=== PATIENT | male | born 1975 | race Caucasian/White ===

== ENCOUNTER 2017-07-06 11:39 | Inpatient (IN) ==
[2017-07-06] MEDS ORDERED: Oxycodone *IR* 5 MG TABLET PO PRN ×2 (13:20→13:45)
[2017-07-06] MEDS ORDERED: BACITRACIN OINT 15 GM TOP PRN (13:45)
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
[2017-07-06] MEDS: ALBUTEROL/IPRATROPIUM 2.5mg-0.5mg/3ml NEB AEROSOL SCH ×2 (16:26→20:23)
[2017-07-06] MEDS: ALBUTEROL 2.5mg/3ml (0.083%) NEB AEROSOL SCH (16:26)
[2017-07-06] MEDS: ALPRAZolam 0.5 MG TABLET PO SCH ×2 (16:36→21:04)
[2017-07-06] MEDS: ACETAMINOPHEN 500 MG TABLET PO SCH ×2 (16:36→21:09)
[2017-07-06] MEDS: CYCLOBENZAPRINE 10 MG TABLET PO SCH ×2 (16:36→21:07)
[2017-07-06] MEDS: APIXABAN 5 MG TABLET PO SCH ×3 (16:37→21:07)
[2017-07-06] MEDS ORDERED: FALL RISK - PHARMACY CONSULT MC PRN (18:44)
[2017-07-06] MEDS ORDERED: Oxycodone *IR* 15 MG TABLET PO PRN (19:37)
[2017-07-06] MEDS: Oxycodone *IR* 15 MG TABLET PO PRN (19:46)
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
[2017-07-06] MEDS ORDERED: DOCUSATE SODIUM 100 MG CAPSULE PO SCH (21:00)
[2017-07-06] MEDS ORDERED: OXYCODONE 40 MG PO SCH ×2 (21:00)
[2017-07-06] MEDS: PREGABALIN 75 MG CAPSULE PO SCH (21:05)
[2017-07-06] MEDS: OXYCODONE PO SCH (21:05)
[2017-07-06] MEDS: SENNOSIDES 8.6 MG TABLET PO SCH (21:06)
[2017-07-06] MEDS: MIRTAZAPINE 15 MG TABLET PO SCH ×2 (21:08→21:10)
[2017-07-06] MEDS: LIDOCAINE PATCH REMOVAL TOP SCH (21:09)
[2017-07-06] MEDS: POLYETHYL GLYCOL 3350 17gm PACKET PO SCH (21:10)
[2017-07-07] MEDS: Oxycodone *IR* 15 MG TABLET PO PRN ×7 (01:25→21:17)
[2017-07-07] MEDS: ALBUTEROL 2.5mg/3ml (0.083%) NEB AEROSOL SCH ×3 (03:12→21:10)
[2017-07-07] MEDS: ACETAMINOPHEN 500 MG TABLET PO SCH ×4 (04:31→21:20)
[2017-07-07] MEDS: OMEPRAZOLE 20 MG CAPSULE PO SCH ×2 (04:31→06:29)
--- NOTE | 2017-07-07 07:31 | IRU 24Hr Post Admit Eval ---
24 Hr Post Admission Physical - Relevant Changes Relevant Changes: No Reviewed: I have reviewed the patient's information and concur with the finding and results of the pre-admission screen. Certification: I certify the patient for rehabilitation. - Prior Functional Status Lives With: Spouse Residence Type: Apartment/Private Home Assitive Devices: Wheelchair Prior Functional Status: Indep. at home or school - Current Functional Status Failed Alternative Therapy: Arrived from Acute Care Patient Requirements: The patient requires oversight by rehabilitation physician to manage their rehabilitation treatment plan and multidisciplinary approach to care that can only be provided in an IRF and requires a multidisciplinary approach to care, provided by professional PTs, OTs, STs, dieticians, RTs, rehabilitation nurses and is not available in lesser levels of care. Limitiations Req: Mobility Impairment Physical Therapy Minutes: 90 Occupational Therapy Minutes: 90 Therapy: The patient is to receive therapy at least 5 days a week. ROM Deficit: Right Lower Extremity, Left Lower Extremity ROM Comment: severe fracture of pelvis requiring surgical stabilization - Complications/Comorbidities Impact on Functional Outcomes: pain, infection, delayed fracture healing Barriers to Discharge: Weakness, Balance, Endurance, Pain Control - Plan to Avoid Complications Plan to Avoid Complications: The patient cannot receive this care in a lesser intensive setting such as Longterm or Outpatient Therapy due to the patient requiring the following .
[2017-07-07] MEDS: ALPRAZolam 0.5 MG TABLET PO SCH ×3 (08:20→21:18)
[2017-07-07] MEDS: OXYCODONE PO SCH (08:20)
[2017-07-07] MEDS: CYCLOBENZAPRINE 10 MG TABLET PO SCH ×4 (08:20→21:22)
[2017-07-07] MEDS: SENNOSIDES 8.6 MG TABLET PO SCH ×2 (08:21→21:22)
[2017-07-07] MEDS: PREGABALIN 75 MG CAPSULE PO SCH ×2 (08:21→21:22)
[2017-07-07] MEDS: APIXABAN 5 MG TABLET PO SCH ×2 (08:21→21:21)
[2017-07-07] MEDS: POLYETHYL GLYCOL 3350 17gm PACKET PO SCH ×2 (08:22→21:23)
[2017-07-07] MEDS: MAGNESIUM OXIDE 400 MG TABLET PO SCH (08:22)
[2017-07-07] MEDS: DOXAZOSIN 4 MG TABLET PO SCH (08:22)
--- NOTE | 2017-07-07 08:26 | IRU Progress Note ---
- Subjective/Serverity of Illness Mobilizing fairly well. Has marked pain really any movement. Overall attitude is good, however. Exam Vital Signs: Temperature 98.3 F 07/07/17 08:00 Pulse Rate 87 07/07/17 08:00 Respiratory Rate 20 07/07/17 08:00 Blood Pressure 139/80 07/07/17 08:00 Pulse Oximetry 96 07/07/17 08:00 Oxygen Delivery Method Room Air Height/Weight/BMI: Height 1.78 m - Constitutional Present: moderate distress Sepsis Assessment - Evaluation Sepsis screening result: No Definite Risk IRU A/P DVT Prophylaxis: Eliquis Resuscitation Status: Full Code - Course Hospital Course: Alhaji Castro MD: - Interventions to Obtain Goals OT Treatment Plan: ADL (Basic Care), Balance Training, IADL, Pt./Family Education, Ther. Exercise for ADL
[2017-07-07] MEDS: LIDOCAINE 5% PATCH TOP SCH (08:47)
[2017-07-07] MEDS: ALBUTEROL/IPRATROPIUM 2.5mg-0.5mg/3ml NEB AEROSOL SCH ×3 (09:44→21:10)
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
[2017-07-07] MEDS: OXYCODONE 40 MG PO SCH (21:18)
[2017-07-07] MEDS: LIDOCAINE PATCH REMOVAL TOP SCH (21:22)
[2017-07-07] MEDS: MIRTAZAPINE 15 MG TABLET PO SCH (21:23)
[2017-07-08] MEDS: Oxycodone *IR* 15 MG TABLET PO PRN ×7 (01:17→21:09)
[2017-07-08] MEDS: ACETAMINOPHEN 500 MG TABLET PO SCH ×5 (01:18→21:11)
[2017-07-08] MEDS: OMEPRAZOLE 20 MG CAPSULE PO SCH ×2 (05:27→06:45)
[2017-07-08] MEDS: ALBUTEROL/IPRATROPIUM 2.5mg-0.5mg/3ml NEB AEROSOL SCH ×3 (07:21→22:48)
[2017-07-08] MEDS: PREGABALIN 75 MG CAPSULE PO SCH ×2 (08:53→21:09)
[2017-07-08] MEDS: DOXAZOSIN 4 MG TABLET PO SCH (08:54)
[2017-07-08] MEDS: POLYETHYL GLYCOL 3350 17gm PACKET PO SCH ×2 (08:54→21:09)
[2017-07-08] MEDS: SENNOSIDES 8.6 MG TABLET PO SCH ×2 (08:54→21:09)
[2017-07-08] MEDS: APIXABAN 5 MG TABLET PO SCH ×2 (08:54→21:10)
[2017-07-08] MEDS: CYCLOBENZAPRINE 10 MG TABLET PO SCH ×3 (08:54→21:10)
[2017-07-08] MEDS: MAGNESIUM OXIDE 400 MG TABLET PO SCH ×2 (08:55→09:07)
[2017-07-08] MEDS: ALPRAZolam 0.5 MG TABLET PO SCH ×3 (08:55→21:11)
[2017-07-08] MEDS: OXYCODONE 40 MG PO SCH ×2 (08:55→21:10)
[2017-07-08] MEDS: LIDOCAINE 5% PATCH TOP SCH (08:56)
[2017-07-08] MEDS ORDERED: CABERGOLINE 0.5 MG TABLET PO SCH (09:00)
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
[2017-07-08] MEDS: ONDANSETRON ODT 4 MG TABLET PO PRN (12:05)
[2017-07-08] MEDS: ALBUTEROL 2.5mg/3ml (0.083%) NEB AEROSOL SCH ×2 (15:41→22:48)
[2017-07-08] MEDS: LIDOCAINE PATCH REMOVAL TOP SCH (20:59)
[2017-07-08] MEDS: MIRTAZAPINE 15 MG TABLET PO SCH (21:10)
[2017-07-09] MEDS: Oxycodone *IR* 15 MG TABLET PO PRN ×7 (02:54→21:13)
[2017-07-09] MEDS: ACETAMINOPHEN 500 MG TABLET PO SCH ×5 (04:04→21:16)
[2017-07-09] MEDS: OMEPRAZOLE 20 MG CAPSULE PO SCH (06:04)
[2017-07-09] MEDS: ALBUTEROL/IPRATROPIUM 2.5mg-0.5mg/3ml NEB AEROSOL SCH ×3 (07:42→22:46)
[2017-07-09] MEDS: ALBUTEROL 2.5mg/3ml (0.083%) NEB AEROSOL SCH ×4 (07:45→20:45)
[2017-07-09] MEDS: ALPRAZolam 0.5 MG TABLET PO SCH ×3 (09:20→21:16)
[2017-07-09] MEDS: OXYCODONE 40 MG PO SCH ×2 (09:20→21:13)
[2017-07-09] MEDS: DOXAZOSIN 4 MG TABLET PO SCH (09:21)
[2017-07-09] MEDS: APIXABAN 5 MG TABLET PO SCH ×2 (09:21→21:15)
[2017-07-09] MEDS: POLYETHYL GLYCOL 3350 17gm PACKET PO SCH ×3 (09:21→22:46)
[2017-07-09] MEDS: PREGABALIN 75 MG CAPSULE PO SCH ×2 (09:21→21:17)
[2017-07-09] MEDS: SENNOSIDES 8.6 MG TABLET PO SCH ×3 (09:21→22:46)
[2017-07-09] MEDS: CYCLOBENZAPRINE 10 MG TABLET PO SCH ×3 (09:21→21:13)
[2017-07-09] MEDS: LIDOCAINE 5% PATCH TOP SCH (09:26)
[2017-07-09] MEDS: MAGNESIUM OXIDE 400 MG TABLET PO SCH (14:26)
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
[2017-07-09] MEDS: LIDOCAINE PATCH REMOVAL TOP SCH (20:04)
[2017-07-09] MEDS: MIRTAZAPINE 15 MG TABLET PO SCH (21:18)
[2017-07-10] MEDS: Oxycodone *IR* 15 MG TABLET PO PRN ×7 (04:22→22:38)
[2017-07-10] MEDS: ACETAMINOPHEN 500 MG TABLET PO SCH ×4 (04:26→21:25)
[2017-07-10] MEDS: OMEPRAZOLE 20 MG CAPSULE PO SCH ×2 (05:05→06:19)
[2017-07-10] MEDS: ALBUTEROL/IPRATROPIUM 2.5mg-0.5mg/3ml NEB AEROSOL SCH ×2 (07:12→15:30)
[2017-07-10] MEDS: LIDOCAINE 5% PATCH TOP SCH (08:40)
[2017-07-10] MEDS: APIXABAN 5 MG TABLET PO SCH ×2 (08:42→21:20)
[2017-07-10] MEDS: OXYCODONE 40 MG PO SCH ×2 (08:42→21:19)
[2017-07-10] MEDS: SENNOSIDES 8.6 MG TABLET PO SCH ×2 (08:43→21:20)
[2017-07-10] MEDS: ALPRAZolam 0.5 MG TABLET PO SCH ×3 (08:43→21:22)
[2017-07-10] MEDS: PREGABALIN 75 MG CAPSULE PO SCH ×2 (08:43→21:19)
[2017-07-10] MEDS: POLYETHYL GLYCOL 3350 17gm PACKET PO SCH ×2 (08:44→21:18)
[2017-07-10] MEDS: CYCLOBENZAPRINE 10 MG TABLET PO SCH ×3 (08:44→21:20)
[2017-07-10] MEDS: DOXAZOSIN 4 MG TABLET PO SCH (08:44)
[2017-07-10] MEDS ORDERED: TESTOSTERONE CYPIONATE 200 MG/ML IM SCH (09:00)
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
[2017-07-10] MEDS ORDERED: ALBUTEROL 2.5mg/3ml (0.083%) NEB AEROSOL PRN (15:54)
[2017-07-10] MEDS ORDERED: ALBUTEROL/IPRATROPIUM 2.5mg-0.5mg/3ml NEB AEROSOL PRN (15:54)
[2017-07-10] MEDS: MIRTAZAPINE 15 MG TABLET PO SCH (21:21)
[2017-07-10] MEDS: LIDOCAINE PATCH REMOVAL TOP SCH (21:22)
[2017-07-11] MEDS: ACETAMINOPHEN 500 MG TABLET PO SCH ×4 (03:15→21:02)
[2017-07-11] MEDS: Oxycodone *IR* 15 MG TABLET PO PRN ×3 (03:15→09:14)
[2017-07-11] MEDS: OMEPRAZOLE 20 MG CAPSULE PO SCH (05:57)
[2017-07-11] MEDS: PREGABALIN 75 MG CAPSULE PO SCH ×2 (09:13→21:02)
[2017-07-11] MEDS: OXYCODONE 40 MG PO SCH ×2 (09:13→21:03)
[2017-07-11] MEDS: ALPRAZolam 0.5 MG TABLET PO SCH ×3 (09:14→21:02)
[2017-07-11] MEDS: APIXABAN 5 MG TABLET PO SCH ×2 (09:15→21:03)
[2017-07-11] MEDS: DOXAZOSIN 4 MG TABLET PO SCH (09:15)
[2017-07-11] MEDS: SENNOSIDES 8.6 MG TABLET PO SCH ×2 (09:15→21:03)
[2017-07-11] MEDS: CYCLOBENZAPRINE 10 MG TABLET PO SCH ×3 (09:15→21:03)
[2017-07-11] MEDS: POLYETHYL GLYCOL 3350 17gm PACKET PO SCH ×2 (09:15→21:02)
[2017-07-11] MEDS: LIDOCAINE 5% PATCH TOP SCH (09:16)
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
[2017-07-11] MEDS: ONDANSETRON ODT 4 MG TABLET PO PRN ×3 (11:28→16:18)
[2017-07-11] MEDS: Oxycodone *IR* 15 MG TABLET PO SCH ×4 (11:34→23:55)
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
[2017-07-11] MEDS ORDERED: METOCLOPRAMIDE 10mg/2ml INJECTION IVP PRN (17:18)
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
[2017-07-11] MEDS: MIRTAZAPINE 15 MG TABLET PO SCH (21:04)
[2017-07-11] MEDS: LIDOCAINE PATCH REMOVAL TOP SCH (21:10)
[2017-07-12] MEDS: Oxycodone *IR* 15 MG TABLET PO SCH ×9 (01:47→21:39)
[2017-07-12] MEDS: ACETAMINOPHEN 500 MG TABLET PO SCH ×4 (04:18→21:42)
[2017-07-12] MEDS: OMEPRAZOLE 20 MG CAPSULE PO SCH (07:03)
[2017-07-12] MEDS: DOXAZOSIN 4 MG TABLET PO SCH (08:38)
[2017-07-12] MEDS: POLYETHYL GLYCOL 3350 17gm PACKET PO SCH ×2 (08:38→21:39)
[2017-07-12] MEDS: PREGABALIN 75 MG CAPSULE PO SCH ×2 (08:38→21:40)
[2017-07-12] MEDS: OXYCODONE 40 MG PO SCH ×2 (08:39→21:40)
[2017-07-12] MEDS: APIXABAN 5 MG TABLET PO SCH ×2 (08:39→21:40)
[2017-07-12] MEDS: SENNOSIDES 8.6 MG TABLET PO SCH ×2 (08:39→21:43)
[2017-07-12] MEDS: CYCLOBENZAPRINE 10 MG TABLET PO SCH ×3 (08:40→21:42)
[2017-07-12] MEDS: LIDOCAINE 5% PATCH TOP SCH (08:40)
[2017-07-12] MEDS: ALPRAZolam 0.5 MG TABLET PO SCH ×3 (08:40→20:15)
[2017-07-12] MEDS: ONDANSETRON ODT 4 MG TABLET PO PRN ×2 (10:03→19:59)
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
[2017-07-12] MEDS: MIRTAZAPINE 15 MG TABLET PO SCH (21:42)
[2017-07-13] MEDS: LIDOCAINE PATCH REMOVAL TOP SCH ×2 (00:11→21:09)
[2017-07-13] MEDS: Oxycodone *IR* 15 MG TABLET PO SCH ×8 (01:07→21:59)
[2017-07-13] MEDS: ACETAMINOPHEN 500 MG TABLET PO SCH ×4 (03:59→21:08)
[2017-07-13] MEDS: OMEPRAZOLE 20 MG CAPSULE PO SCH (07:02)
[2017-07-13] MEDS: APIXABAN 5 MG TABLET PO SCH ×2 (08:52→21:09)
[2017-07-13] MEDS: PREGABALIN 75 MG CAPSULE PO SCH ×2 (08:52→21:09)
[2017-07-13] MEDS: POLYETHYL GLYCOL 3350 17gm PACKET PO SCH ×2 (08:53→21:07)
[2017-07-13] MEDS: DOXAZOSIN 4 MG TABLET PO SCH (08:53)
[2017-07-13] MEDS: ALPRAZolam 0.5 MG TABLET PO SCH ×3 (08:53→21:08)
[2017-07-13] MEDS: CYCLOBENZAPRINE 10 MG TABLET PO SCH ×3 (08:53→21:08)
[2017-07-13] MEDS: OXYCODONE 40 MG PO SCH ×2 (08:53→21:08)
[2017-07-13] MEDS: SENNOSIDES 8.6 MG TABLET PO SCH ×2 (08:54→21:07)
[2017-07-13] MEDS: LIDOCAINE 5% PATCH TOP SCH (08:54)
[2017-07-13] MEDS: ONDANSETRON ODT 4 MG TABLET PO PRN (12:24)
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
[2017-07-13] MEDS: MIRTAZAPINE 15 MG TABLET PO SCH (21:07)
[2017-07-14] MEDS: Oxycodone *IR* 15 MG TABLET PO SCH ×5 (01:04→13:00)
[2017-07-14 03:13] VITALS: O2SAT 96
[2017-07-14] MEDS: ACETAMINOPHEN 500 MG TABLET PO SCH ×2 (04:01→08:49)
[2017-07-14] MEDS: OMEPRAZOLE 20 MG CAPSULE PO SCH (07:12)
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
[2017-07-14] MEDS: CYCLOBENZAPRINE 10 MG TABLET PO SCH (08:49)
[2017-07-14] MEDS: OXYCODONE 40 MG PO SCH (08:50)
[2017-07-14] MEDS: APIXABAN 5 MG TABLET PO SCH (08:50)
[2017-07-14] MEDS: ALPRAZolam 0.5 MG TABLET PO SCH (08:51)
[2017-07-14] MEDS: SENNOSIDES 8.6 MG TABLET PO SCH (08:51)
[2017-07-14] MEDS: DOXAZOSIN 4 MG TABLET PO SCH (08:51)
[2017-07-14] MEDS: PREGABALIN 75 MG CAPSULE PO SCH (08:51)
[2017-07-14] MEDS: LIDOCAINE 5% PATCH TOP SCH (08:52)
[2017-07-14] MEDS: POLYETHYL GLYCOL 3350 17gm PACKET PO SCH (08:53)
[2017-07-14] MEDS: ONDANSETRON ODT 4 MG TABLET PO PRN (09:57)
[2017-07-14 10:18] VITALS: BP 135/70; PULSE 89; RESP 20; TEMP 98.1
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
== END 2017-07-14 13:55 | disposition home health service (06) | DRG 560 ==
PROVIDERS: ADMIT Orthopaedic Surgery; ATTEND Orthopaedic Surgery

== ENCOUNTER 2018-03-13 00:06 | Inpatient (IN) ==
[2018-03-13] MEDS ORDERED: NS 1,000 ML IV ONE (00:19)
--- NOTE | 2018-03-13 00:19 | Emergency Department Report ---
Abdominal Pain HPI - General Chief Complaint: Abdominal Pain Stated Complaint: Abd pain Time Seen by Provider: 03/13/18 00:18 Source: patient, family, EMS Mode of arrival: EMS Limitations: no limitations - History of Present Illness HPI narrative: 42-year-old male presents to the emergency department with a chief complaint of abdominal pain. Patient noted onset of symptoms earlier today and symptoms of increased throughout the day. He describes his pain as severe. Pain is sharp. Pain is generalized throughout the abdomen without radiation. He notes nausea with scattered episodes of emesis. Emesis is nonbloody and nonbilious. He denies any trauma, travel, poorly prepared food, or recent antibiotic use. He has been trying [id number] bowel regimen in order to produce a bowel movement. He has no other complaints or associated symptoms at this time. He was at home when his symptoms began. Symptoms have been persistent in nature since onset. - Related Data Home Medications Medication Instructions Recorded Confirmed Cabergoline [Dostinex] 0.5 mg PO 1 WEEK #0 12/10/11 03/13/18 Cyclobenzaprine [Flexeril] 1 tab PO TID 07/06/17 03/13/18 Doxazosin [Cardura] 1 tab PO DAILY 07/06/17 03/13/18 Magnesium Hydroxide [Milk of 2,400 mg PO DAILY 07/06/17 03/13/18 Magnesia] Omeprazole 1 tab PO ACB 07/06/17 03/13/18 Polyethylene Glycol 3350 [Miralax] 17 gm PO DAILY 07/06/17 03/13/18 Testosterone 200 mg/ml (1 ml) 1 ml IM WEEKLY 07/06/17 03/13/18 [Depo-Testosterone] ALPRAZolam [Xanax] 1 - 2 tab PO Q8H PRN 12/11/17 03/13/18 Oxycodone CR [Oxycontin] 40 mg PO Q6H 03/13/18 03/13/18 Oxycodone HCl [Oxycontin] 80 mg PO BID 03/13/18 03/13/18 Previous Rx's Medication Instructions Recorded Ondansetron Odt [Zofran Odt Tablet] 4 mg PO QID PRN #20 tab 07/14/17 Pregabalin Cap [Lyrica] 2 cap PO BID #56 cap 07/14/17 Allergies Allergy/AdvReac Type Severity Reaction Status Date / Time Penicillins Allergy Unknown Verified 03/13/18 03:38 Review of Systems Constitutional: Denies: fever, chills Eyes: Denies: eye pain, vision change ENT: Denies: ear pain, throat pain Cardiovascular: Denies: chest pain, palpitations Respiratory: Denies: cough, dyspnea Gastrointestinal: Reports: abdominal pain, nausea, vomiting. Denies: diarrhea Genitourinary: Denies: urgency, dysuria Musculoskeletal: Denies: back pain, arthralgia Integumentary: Denies: erythema, rash Neurological: Denies: headache, numbness Psychiatric: Denies: anxiety, depression Endocrine: Denies: fatigue, heat or cold intolerance Hematological/Lymphatic: Denies: easy bruising, lymphadenopathy Allergic/Immunologic: Denies: facial swelling, urticaria PFSH Patient Stated Medical History Peripheral Neuropathy Yes Hypertension Yes Other Cardiology Yes: pt. reports mitral valve prolapse Constipation Yes Hx Incontinence No Hx Kidney Stones Yes Other Yes: tonsils/adenoids removed Surgical History: I&D with IM nail for right open tibia fracture 06/27/[address] Encinas. Percutaneous reduction and screw fixation of right SI and right anterior column on 06/30/[address] Encinas. cholecystectomy. T&A Family History: Reviewed and noncontributory. - Social History Smoking status: Never smoker Substance use type: does not use Alcohol intake frequency: does not drink Current residence: Apartment/Private Home Physical Exam - Limitations Limitations: no limitations - General General appearance: alert, in distress (Mild distress secondary to pain. ) - Normal Exams: Head:: Normocephalic without trauma Eyes:: Pupils are PERRLA w/ EOMI, No scleral icterus, irritation, or foreign bodies noted ENMT:: No facial trauma, nasal exudates, pharyngeal erythema, or exudates are noted Dental: No fractured, loose, or missing teeth noted Neck:: Full range of motion, without adenopathy, JVD, bruits or thyromegaly Chest/Respirations:: Clear all miles, with good airflow, and symmetry bilaterally Cardiovascular:: Regular rate and rhythm, without murmur or gallop, Pulses 2+ all extremities, capillary refill, <2 seconds all extremities Abdomen:: Bowel sounds positive (Firm. Generalized tenderness to palpation. No rebound or guarding. NO CVAT.), non-distended, no hepatosplenomegaly, masses or bruits noted Lymphatic:: No lymphadenopathy, or lymphedema noted Musculoskeletal:: No tenderness, or deformity noted, good range of motion, all extremities Integumentary:: No rashes, hives, or bruising noted, hair and nails, without abnormality Neurological:: Patient is alert, and oriented, cranial nerves, motor/sensory/ cerebellar, exams w/o gross deficits, to observation Psychiatric:: Patient exhibits, appropriate attention, emotion and affect Abdominal Pain - MDM Narrative Medical decision making narrative: Labs / imaging were discussed in detail with the patient and family and questions are answered. Patient is reviewed with Dr. Gardner of general surgery who recommends admission to the hospitalist service with consultation to Dr. Stephen Nazario as Dr. Nazario has performed a cholecystectomy on the patient several years prior. Patient is given gentle IV hydration. He is given parental narcotic and antiemetic medication intravenously with improvement of symptoms. Patient declines recommended nasogastric tube placement. He is discussed with the hospitalist Dr. Cummins who will consult Dr. Nazario. Patient is admitted to the service of the hospitalist in improved condition. No further orders from accepting or consulting physicians who were in agreement with the current plan of management. - Differential Diagnosis Differential diagnosis: Likely: abdominal pain, constipation, diverticulitis, gastroenteritis, pancreatitis, small bowel obstruction - Medical Records Attestation: I reviewed the patient's medical records. - Lab Data Result diagrams: 03/13/18 01:04 03/13/18 01:04 - Radiology Data CT abdomen/pelvis: Mild dependent bibasilar atelectasis with trace bilateral pleural effusions. Small cyst of the liver. Prominent stool right colon with moderate air. Normal appendix. Moderate fluid distention of the small bowel with air-fluid levels with relative decompression distant the small bowel compatible with partial SBO. Relative transition zone in the left upper abdomen. No mass appreciated. Old fractures about the pelvis with metallic hardware in place. - EKG Data EKG #1 EKG results narrative: Sinus tachycardia. 105 bpm. No STEMI. Disposition Clinical Impression: Small bowel obstruction Disposition: 02 To [facility] Condition: Stable Time of Disposition: 03:30 - Seen By: physician
[2018-03-13] MEDS ORDERED: HYDROMORPHONE 2 MG/ML INJECTION IVP ONE ×2 (00:20→03:57)
[2018-03-13] MEDS ORDERED: ONDANSETRON 4 MG/2 ML INJECTION IVP ONE (00:20)
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
[2018-03-13] MEDS ORDERED: ORPHENADRINE 60 MG/2 ML INJECTION IM ONE (00:41)
[2018-03-13] MEDS ORDERED: ORPHENADRINE 60 MG/2 ML INJECTION IVP ONE (00:57)
[2018-03-13] MEDS ORDERED: IOHEXOL 300mg/ml 100ml INJECTION ONE (01:49)
[2018-03-13] MEDS ORDERED: SALINE FLUSH 10ml SYRINGE ONE (01:50)
[2018-03-13] MEDS: SALINE FLUSH 10ml SYRINGE IVF PRN ×2 (04:01→17:49)
[2018-03-13] MEDS ORDERED: SALINE FLUSH 10ml SYRINGE IV PRN (04:38)
[2018-03-13 06:00] VITALS: BMI 30.5
[2018-03-13] MEDS: ONDANSETRON 4 MG/2 ML INJECTION IVP PRN ×2 (06:11→17:48)
[2018-03-13] MEDS: NS 1,000 ML IV SCH ×2 (06:16→16:31)
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
[2018-03-13] MEDS ORDERED: LABETALOL 100mg/20ml INJECTION IVP PRN (06:25)
[2018-03-13] MEDS: MORPHINE SULFATE 4mg INJECTION IVP PRN ×6 (07:32→22:06)
--- NOTE | 2018-03-13 08:10 | CT Scan Report ---
Indication: abd pain, distention PROCEDURE: CT abdomen pelvis wo con: Encounter: Initial Comparison: None Technique: Axial CT images were performed through the abdomen and pelvis without intravenous contrast. Coronal and sagittal two-dimensional reformats. Automated Exposure Control and Iterative Reconstruction dose reducing techniques were utilized. Findings: Airspace consolidation in both lower lobes and the right middle lobe. The liver shows multiple small cysts. Gallbladder is surgically absent. The spleen is unremarkable. The pancreas is grossly normal. The adrenal glands are normal. Small bilateral nonobstructing renal stones. No ureteral stones. Bladder is normal. Prostate and normal. Orthopedic hardware in the left acetabulum and superior pubic ramus. Old right inferior pubic ramus fracture. The colon is decompressed distally. The appendix is normal. There are multiple dilated loops of small bowel with areas of fecalization seen in the central abdomen. There is no of breath transition point however and the distention extends to the level of the terminal ileum. Loops are dilated up to 4.5 cm in size. Bone windows show no acute findings. Impression: 1. Findings of a moderate to high-grade partial small bowel obstruction. Continued imaging follow-up is recommended. 2. Lower lobe airspace disease could be due to atelectasis or pneumonia. 3. Nephrolithiasis. There is a preliminary report by [facility]. .
[2018-03-13] MEDS: PANTOPRAZOLE 40 MG INJECTION IVP SCH ×2 (08:31→20:09)
[2018-03-13] MEDS ORDERED: Oxycodone *IR* 5 MG TABLET PO SCH (11:15)
[2018-03-13] MEDS ORDERED: OXYCODONE IR PO SCH (11:30)
--- NOTE | 2018-03-13 12:34 | XRay Report ---
Indication: F/U Small Bowel obstruction PROCEDURE: XR abdomen 2V: Encounter: Initial Comparison: CT abdomen dated March 13, 2018 Findings: There are mildly dilated small bowel loops seen in the central abdomen measuring up to 4.5 cm in diameter with air-fluid levels present. There is continued colonic gas seen throughout to the level of the rectum. Cholecystectomy clips. Basilar airspace disease. Hardware in the right pelvis. Impression: Continued findings of a partial small bowel obstruction. .
[2018-03-13] MEDS: Oxycodone *IR* 5 MG TABLET PO SCH ×2 (12:59→18:27)
[2018-03-13] MEDS: OXYCODONE IR PO SCH ×2 (13:00→18:26)
[2018-03-13] MEDS: CYCLOBENZAPRINE 10 MG TABLET PO SCH ×2 (14:39→20:09)
[2018-03-13] MEDS ORDERED: SORE THROAT SPRAY 20ml PO PRN (17:19)
[2018-03-13] MEDS: BENZOCAINE/MENTHOL SORE THROAT LOZENGE MM PRN (17:53)
[2018-03-13] MEDS: OXYCODONE 40 MG PO SCH (18:25)
[2018-03-13] MEDS: PREGABALIN 75 MG CAPSULE PO SCH (20:10)
[2018-03-14] MEDS: MORPHINE SULFATE 4mg INJECTION IVP PRN ×7 (00:24→22:19)
[2018-03-14] MEDS: OXYCODONE IR PO SCH ×4 (00:24→18:42)
[2018-03-14] MEDS: Oxycodone *IR* 5 MG TABLET PO SCH ×4 (00:24→18:42)
[2018-03-14] MEDS: NS 1,000 ML IV SCH ×3 (01:00→22:13)
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
--- NOTE | 2018-03-14 08:29 | XRay Report ---
Indication: small bowel obstruction PROCEDURE: XR abdomen 2V: Encounter: Initial Comparison: March 13, 2018 Findings: Interval decrease in small bowel distention with resolution of several of the prior air-fluid levels. No free air. Linear atelectasis in the left lower lobe. Scattered diffuse colonic gas and stool to the level of the rectum. Impression: Improving partial small bowel obstruction. .
[2018-03-14] MEDS: CYCLOBENZAPRINE 10 MG TABLET PO SCH ×3 (09:43→21:30)
[2018-03-14] MEDS: DOXAZOSIN 4 MG TABLET PO SCH (09:43)
[2018-03-14] MEDS: OXYCODONE 40 MG PO SCH ×2 (09:45→16:13)
[2018-03-14] MEDS: PANTOPRAZOLE 40 MG INJECTION IVP SCH ×2 (10:10→20:09)
[2018-03-14] MEDS: PREGABALIN 75 MG CAPSULE PO SCH ×2 (10:27→21:30)
[2018-03-14] MEDS: POLYETHYL GLYCOL 3350 17gm PACKET PO SCH (10:27)
--- NOTE | 2018-03-14 10:34 | Progress Note ---
- Date 03/14/18 Subjective: F/U: Small Bowel Obstruction, Ab pain secondary to SBO, N/V secondary to SBO Rough. Very anxious. Wanting to go home so he can 'get sleep' and take his pain medications. Lorazepam not helping for anxiety. Increased anxiety with NG. Does feel ab less full and bloated. Nausea decreased and feels is passing some flatus. Appetite minimal - not 'sick' at thought of food, but not feeling very hungry. Walking some. Objective Vital signs: Temperature 98.4 F 03/14/18 08:00 Pulse Rate 80 03/14/18 08:00 Respiratory Rate 18 03/14/18 08:00 Blood Pressure 139/82 03/14/18 08:00 Pulse Oximetry 95 03/14/18 08:00 Height/Weight/BMI: Height 1.78 m Weight 95.4 kg Body Mass Index 30.5 - Constitutional Present: well nourished, well developed, average body habitus - Routine HEENT Exam Head: Present: normocephalic, atraumatic Eye: Present: EOMI, PERRL ENT: Present: mucous membranes moist - Routine Respiratory Exam Present: CTA bilaterally. Absent: respiratory distress - Routine Cardiovascular Exam Present: RRR, no murmur - Routine Abdominal Exam Present: soft, tenderness (Mild), distended (Slight). Absent: normoactive bowel sounds (Decreased, but present), guarding, firm, rigid - Routine Extremities Exam Present: no edema, pulses intact. Absent: cyanosis, clubbing - Routine Musculoskeletal Exam Musculoskeletal: Present: no clubbing or cyanosis - Routine Skin Exam Present: dry, warm - Routine Neurological Exam Present: alert, CN II-XII intact, moving all extremities, vision grossly intact , hearing grossly intact, normal speech. Absent: motor deficit - Routine Psychiatric Exam Present: anxious Results - Labs CBC & Chem 7: 03/14/18 04:17 03/14/18 04:17 Assessment and Plan (1) Small bowel obstruction Current visit: Yes Status: Acute (2) Hypertension Current visit: Yes Status: Acute (3) Chronic pain syndrome Current visit: No Status: Chronic (4) GERD (gastroesophageal reflux disease) Current visit: Yes Status: Acute Assessment and Plan: Assessment Small Bowel Obstruction Ab pain secondary to SBO N/V secondary to SBO Leukocytosis Hypernatremia (POA) HTN GERD Chronic pain syndrome Chronic narcotic use - narcotic dependency Plan Dr Nazario had long discussion about treatments. Recommends NG for decompression. Patient wanting to leave AMA so could go home to 'get sleep' and take his pain meds like his way. Did request second opinion on treatment options - will place consult to Dr Madera. Discussed with patient about his need for continued hospital treatment. Do not recommend patient leaving. Will increase lorazepam to help with anxiety. Recommend replacing NG. Recheck KUB in am. If seeing improvements, likely SBFT tomorrow to see if obstruction resolved. Will continue with IV support. Encourage ambulation. Recheck CBC in am due to defervescing leukocytosis. Will recheck BMP in am due to IVF use. Case discussed with nursing, Dr Nazario, and patient's family. Time spent with patient care 35 minutes. DVT Prophylaxis: SCD's Resuscitation Status: Full Code - Time spent with patient Time with patient PN: 25 minutes - Physician Narrative Physician: Pradip Natarajan MD Narrative: Date: 03/14/18 Time: 1030 Hospital Course Summary Disclaimer: The visit summary below is not to be considered part of the above Progress Note. Hospital Course: 03/13/18 Admission Inpatient admission to [facility] under care of Dr Natarajan for treatment of small bowel obstruction. Anticipate greater than 2 midnights of care needed. NPO for bowel rest secondary to SBO. NG for abdominal decompression secondary to significant N/V. IV Zofran prn nausea. Will consult with Dr Nazario for surgical evaluation of SBO. IVF for hydration. IV Protonix due to underlying GERD treated with PPI. MS to help pain. SCD for DVT prevention. Monitor lab. Full code per his requests. Care to return to Dr Lucero at time of discharge from [facility]. By midmorning nausea decreased after patient passed stool and emesis. Attempted to advance diet. But KUB showing high grade obstruction. NG replaced. Patient only could tolerate for 2 hours - pulled out as was making him too anxious. 03/14/18 Dr Nazario had long discussion about treatments. Recommends NG for decompression. Patient wanting to leave AMA so could go home to 'get sleep' and take his pain meds like his way. Did request second opinion on treatment options - will place consult to Dr Madera. Discussed with patient about his need for continued hospital treatment. Do not recommend patient leaving. Will increase lorazepam to help with anxiety. Recommend replacing NG. Recheck KUB in am. If seeing improvements, likely SBFT tomorrow to see if obstruction resolved. Will continue with IV support. Encourage ambulation.
[2018-03-14] MEDS: METOCLOPRAMIDE 10mg/2ml INJECTION IVP SCH ×3 (11:11→20:13)
[2018-03-14] MEDS: BENZOCAINE/MENTHOL SORE THROAT LOZENGE MM PRN ×2 (12:03→20:15)
--- NOTE | 2018-03-14 12:05 | XRay Report ---
Indication: NG PLACEMENT PROCEDURE: XR KUB: Encounter: Initial Comparison: March 14, 2018 at 0635 Findings: New nasogastric tube in place with the tip and side port projecting over the body of the stomach. No gross free air identified. Gas pattern in the small and large bowel is unchanged from the recent comparison. Impression: New nasogastric tube appears appropriately positioned. .
--- NOTE | 2018-03-14 15:10 | XRay Report ---
Indication: small bowel obstruction PROCEDURE: XR abdomen 2V: Encounter: Initial Comparison: March 14, 2018 at 1154 Findings: The nasogastric tube now shows an acute angulation in the body of the stomach and appears kinked. The bowel gas pattern is grossly stable. Bilateral renal stones. Scattered colonic gas. Impression: New acute angulation at the distal aspect of the nasogastric tube consistent with a kink. Recommend correlation with tube function. .
[2018-03-14] MEDS: ONDANSETRON 4 MG/2 ML INJECTION IVP PRN (16:01)
[2018-03-15] MEDS: MORPHINE SULFATE 4mg INJECTION IVP PRN ×2 (00:42→03:25)
[2018-03-15] MEDS: Oxycodone *IR* 5 MG TABLET PO SCH ×3 (01:13→14:10)
[2018-03-15] MEDS: OXYCODONE IR PO SCH ×3 (01:13→14:10)
[2018-03-15 01:14] VITALS: RESP 16
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
[2018-03-15 07:29] VITALS: BP 142/93; PULSE 59; TEMP 99.2; O2SAT 96
[2018-03-15] MEDS ORDERED: KETOROLAC 30 MG/ML INJECTION IVP PRN (08:51)
[2018-03-15] MEDS: NS 1,000 ML IV SCH (08:57)
--- NOTE | 2018-03-15 08:59 | Progress Note ---
DATE OF VISIT 03/14/2018 REASON FOR VISIT Second opinion regarding bowel obstruction. SUBJECTIVE Wojciech had requested a second opinion with regards to his bowel obstruction. He did have an NG tube replaced today and has had 650 mL out since replacement of the NG tube. His original NG tube was only in for approximately 2 hours. The patient is not willing to consider any open procedure and currently feels that conservative management with NG tube is the best option. OBJECTIVE GENERAL: The patient is awake, alert, in no acute distress. HEENT: NG tube is in place with 650 mL of bilious output in the canister. IMPRESSION Partial small bowel obstruction. RECOMMENDATIONS I did discuss the situation with Wojciech and his who is present. I explained that I agreed with Dr. Nazario that management options were conservative management with NG tube decompression versus diagnostic laparoscopy with a likely conversion to a laparotomy. I did explain that bowel obstructions are 75-80% likely to resolve with NG tube decompression alone given 72 hours. I also explained that laparoscopy would be unlikely to be successful and would most likely result in conversion to an exploratory laparotomy. I explained that bowel decompression and normalization of the caliber of the bowel was typically required for resolution of the bowel obstruction and reiterated the importance of NG tube decompression. Both he and his had opportunity to ask questions. Following the discussion he wanted to continue with conservative management. 15 minutes of [id number] time was spent with the patient with greater than half of the time being used for counseling and coordination of care. ROBERT
--- NOTE | 2018-03-15 09:13 | XRay Report ---
Indication: SBO PROCEDURE: XR abdomen 2V: Encounter: Initial Comparison: March 14, 2018 Findings: The prior nasogastric tube has been discontinued. There is increase in colonic gas compared to the prior study. Mildly prominent small bowel in the central abdomen remains measuring up to 4 cm in diameter. No air-fluid levels. Impression: Gradually improving partial small bowel obstruction. .
[2018-03-15] MEDS: DOXAZOSIN 4 MG TABLET PO SCH (09:21)
[2018-03-15] MEDS: PANTOPRAZOLE 40 MG INJECTION IVP SCH (09:21)
[2018-03-15] MEDS: CYCLOBENZAPRINE 10 MG TABLET PO SCH (09:21)
[2018-03-15] MEDS: OXYCODONE 40 MG PO SCH (09:21)
[2018-03-15] MEDS: POLYETHYL GLYCOL 3350 17gm PACKET PO SCH (09:22)
[2018-03-15] MEDS: PREGABALIN 75 MG CAPSULE PO SCH (09:25)
[2018-03-15] MEDS ORDERED: NS with KCL 20 mEq 1,000 ML IV SCH (10:45)
[2018-03-15] MEDS ORDERED: DIATRIZOATE MEGLUMINE/SOD. (66%/10%) 120ml SOLN ONE (10:48)
--- NOTE | 2018-03-15 10:50 | Progress Note ---
- Date 03/15/18 Subjective: F/U: Small bowel obstruction NG tube came out overnight. Not having increased nausea or ab pain with tube out. Denies nausea. Feels hungry. Passing flatus and stool. Feeling much better than admission. Objective Vital signs: Temperature 99.2 F 03/15/18 07:28 Pulse Rate 59 L 03/15/18 07:28 Respiratory Rate 16 03/15/18 07:28 Blood Pressure 142/93 H 03/15/18 07:28 Pulse Oximetry 96 03/15/18 07:28 Height/Weight/BMI: Height 1.78 m Weight 95 kg Body Mass Index 30.5 - Constitutional Present: well nourished, well developed - Routine HEENT Exam Head: Present: normocephalic, atraumatic Eye: Present: EOMI, PERRL, normal accommodation ENT: Present: mucous membranes moist - Routine Respiratory Exam Present: CTA bilaterally. Absent: respiratory distress - Routine Cardiovascular Exam Present: RRR, no murmur - Routine Abdominal Exam Present: soft, non distended, non tender. Absent: normoactive bowel sounds ( Decreased, but present), guarding - Routine Extremities Exam Present: no edema. Absent: cyanosis, clubbing - Routine Skin Exam Present: intact, dry, warm - Routine Neurological Exam Present: alert, CN II-XII intact, moving all extremities, vision grossly intact , hearing grossly intact, normal speech. Absent: motor deficit - Routine Psychiatric Exam Present: anxious. Absent: good judgment (Not really the best) Results - Labs CBC & Chem 7: 03/15/18 04:12 03/15/18 04:12 Assessment and Plan (1) Small bowel obstruction Current visit: Yes Status: Acute (2) Hypertension Current visit: Yes Status: Acute (3) Chronic pain syndrome Current visit: No Status: Chronic (4) GERD (gastroesophageal reflux disease) Current visit: Yes Status: Acute Assessment and Plan: Assessment Small Bowel Obstruction - resolved Ab pain secondary to SBO - resolved N/V secondary to SBO resolved Leukocytosis (POA) - resolved Hypernatremia (POA) HTN GERD Chronic pain syndrome Chronic narcotic use - narcotic dependency Plan NG came out overnight. IV site 'came out' this morning. Patient not having increased ab pain or nausea since NG out. Reports flatus and stool. Will obtain gastrograffin small bowel follow through to document resolution of SBO. Advised patient of potential increased N/V with SBFT if SBO not resolved. If SBO not resolved, potentially need surgical intervention. Patient understands. 1445 SBFO showing normal intestinal transit. No blockage seen. Patient producing copious stools post. With resolution of SBP and associated ab pain and N/V will discharge to home. Discussed with Dr Nazario who concurs. Recommend bland diet for next several days, increasing as tolerated. Small portions. Activities as tolerated. No new medications initiated at discharge. F/U with Dr Lucero in 1 week. See orders for details. Case discussed with nursing, Dr Nazario & pt's family. Time spent with patient care & discharge greater than 30 minutes. DVT Prophylaxis: SCD's Resuscitation Status: Full Code - Physician Narrative Physician: Pradip Natarajan MD Narrative: Date: 03/15/18 Time: 1047 Hospital Course Summary Disclaimer: The visit summary below is not to be considered part of the above Progress Note. Hospital Course: 03/13/18 [place]mission [place] [facility] [place] care of Dr Natarajan for treatment of small bowel obstruction. Anticipate greater than 2 midnights of care needed. NPO for bowel rest secondary to SBO. NG for abdominal decompression secondary to significant N/V. IV Zofran prn nausea. Will consult with Dr Nazario for surgical evaluation of SBO. IVF for hydration. IV Protonix due to underlying GERD treated with PPI. MS to help pain. SCD for DVT prevention. Monitor lab. Full code per his requests. Care to return to Dr Lucero at time of discharge from [facility] By midmorning nausea decreased after patient passed stool and emesis. Attempted to advance diet. But KUB showing high grade obstruction. NG replaced. Patient only could tolerate for 2 hours - pulled out as was making him too anxious. 03/14/18 Dr Nazario had long discussion about treatments. Recommends NG for decompression. Patient wanting to leave AMA so could go home to 'get sleep' and take his pain meds like his way. Did request second opinion on treatment options - will place consult to Dr Madera. Discussed with patient about his need for continued hospital treatment. Do not recommend patient leaving. Will increase lorazepam to help with anxiety. Recommend replacing NG. Recheck KUB in am. If seeing improvements, likely SBFT tomorrow to see if obstruction resolved. Will continue with IV support. Encourage ambulation. 03/15/18 NG came out overnight. IV site 'came out' this morning. Patient not having increased ab pain or nausea since NG out. Reports flatus and stool. Will obtain gastrograffin small bowel follow through to document resolution of SBO. Advised patient of potential increased N/V with SBFT if SBO not resolved. If SBO not resolved, potentially need surgical intervention. Patient understands. 1445 SBFO showing normal intestinal transit. No blockage seen. Patient producing copious stools post. With resolution of SBP and associated ab pain and N/V will discharge to home. Discussed with Dr Nazario who concurs. Recommend bland diet for next several days, increasing as tolerated. Small portions. Activities as tolerated. No new medications initiated at discharge. F/U with Dr Lucero in 1 week. See orders for details.
--- NOTE | 2018-03-15 13:40 | XRay Report ---
Indication: SBO PROCEDURE: XR small bowel follow through: Encounter: Initial Comparison: Abdominal radiograph from earlier today Findings: Water-soluble contrast was administered orally followed by serial abdominal radiographs. Images show progression through mildly distended small bowel loops measuring up to 4 cm in diameter. Contrast traverses the small bowel and colon reaching the rectum by 2 hours after administration. Impression: Normal intestinal transit time. .
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
--- NOTE | 2018-03-15 16:12 | Progress Note ---
DATE 03/15/2018 HISTORY OF PRESENT ILLNESS The patient pulled out his nasogastric tube during the middle of the night last night. The patient then refused to have the nasogastric tube reinserted. The patient took out his IV during the night. The nurses started a second IV. The patient then took out his second IV. He then refused to have a new IV started. The patient denies any abdominal pain, nausea or vomiting at this time. PHYSICAL EXAMINATION VITALS: Temperature is 99.2 degrees Fahrenheit oral. Pulse is 59. Respiratory rate is 16. Blood pressure is 142/93. Oxygen saturation is 96% on room air. ABDOMEN: The abdomen is soft and nontender. The abdomen still seems to be a little bit distended. LABORATORY DATA White blood cell count is 9800. Hemoglobin is 12.7. Hematocrit is 39.8. Serum sodium is 145. Serum potassium is 3.6. Serum chloride is 109. IMAGING DATA KUB and upright abdominal x-rays performed this morning show increasing colonic gas compared to the previous study. There were still some mildly prominent small bowel loops at the central abdomen measuring up to 4 cm in diameter. The KUB and upright x-rays did appear to show gradually improving partial small bowel obstruction. The patient did undergo a small bowel follow-through x-ray series later today. This does show that there is normal intestinal transit time. The contrast does reach the rectum by two hours after administration. The images do show progression through some mildly distended small bowel loops measuring up to 4 cm in diameter. IMPRESSION 1. Partial small bowel obstruction at the time of admission to the hospital. 2. Normal intestinal transit time demonstrated on small bowel follow-through x- ray series today. RECOMMENDATIONS Diet for the patient could be started and if he tolerates this well he could be dismissed from the hospital today. ROBERT
== END 2018-03-15 15:04 | disposition home or self-care (01) | DRG 389 ==
LOC: ED 00:06 → SRG 04:36
PROVIDERS: ADMIT Emergency Medicine; ATTEND Hospitalist